=== PATIENT | female | born 1945 | race Caucasian/White ===

== ENCOUNTER 2019-03-19 06:34 | Emergency (ER) | payer OTHER ==
[~2019-03-19] VITALS: Ht 177.8 cm; Wt 76.2 kg
[2019-03-19] MEDS ORDERED: XARELTO20 MG (07:07)
[2019-03-19] MEDS ORDERED: TOPROL XL25 M1 (07:07)
== END 2019-03-19 12:57 | disposition home or self-care (01) ==
LOC: ER 06:34
DX: J32.8 Other chronic sinusitis (principal)

== ENCOUNTER 2019-12-02 09:36 | Outpatient (CLI) | payer OTHER ==
[~2019-12-02 09:36] MED LIST: TOPROL XL25 M1; XARELTO20 MG
== END 2019-12-02 09:50 | disposition home or self-care (01) ==
LOC: NUCLEAR 09:36
PROVIDERS: ATTEND Internal Medicine Cardiovascular Disease
DX: I82.493 Acute embolism and thrombosis of other specified deep vein of lower extremity, bilateral (principal)